=== PATIENT | female | born 1935 | race Caucasian/White ===

== ENCOUNTER 2020-06-15 10:05 | Outpatient (CLI) | payer MEDICARE, SELFPAY ==
--- NOTE | ~2020-06-15 | MMUS_ITS ---
EXAMINATION: US GUIDED NEEDLE BIOPSY WITH VACUUM ASSISTANCE DATE: 06/15/2020 11:08 CDT INDICATION: Left breast mass seen on recent examination. Ultrasound-guided core biopsy is requested to evaluate for malignancy. TECHNIQUE AND FINDINGS: The risks and potential benefits of the procedure were discussed with the patient, and written inform ed consent was obtained. After sterile preparation of the left breast, 1% lidocaine was utilized for local anesthesia. 1% lidocaine with epinephrine was used for deep anesthesia. The mass of interest is located in the upper inner quadrant. A 10G vacuum-assisted biopsy gun needle was advanced through to the outer edge of the region of interest from a superior medial approach util izing sonographic guidance. A total of three tissue core samples were obtained through the lesion. An Inrad tissue marker clip was then placed at the biopsy site. Hemostasis was achieved. The patient tolerated procedure well and there was no evidence of immediate complication. The patien t was given verbal instructions partly is from the department. Left breast mammograms to document ti ssue marker clip placement. The tissue samples were submitted to surgical pathology for histologic an alysis.] IMPRESSION: 1. Successful ultrasound-guided vacuum-assisted biopsy of left breast mass in the upper inner quadra nt with tissue marker placement. Please refer to pathology report for histologic analysis. Reviewed, dictated and finalized at location A. IMPRESSION: 1. Successful ultrasound-guided vacuum-assisted biopsy of left breast mass in the upper inner quadrant with tissue marker placement. Please refer to patholog y report for histologic analysis.
== END 2020-06-15 10:06 | disposition home or self-care (01) ==
PROVIDERS: PCP Surgery; Visit Provider Surgery
DX: D05.12 Intraductal carcinoma in situ of left breast (principal)
CPT/HCPCS: 19083; 88305; 88342

== ENCOUNTER 2020-07-13 13:31 | Outpatient (CLI) | payer MEDICARE, SELFPAY ==
--- NOTE | ~2020-07-13 | XR_ITS ---
EXAMINATION: XR chest 2V DATE: 07/13/2020 15:03 INDICATION: History of hypertension TECHNIQUE: PA and lateral views of the chest are obtained. COMPARISON: 12/08/2016 FINDINGS: The lungs are free of acute opacities. There is no pleural effusion or pneumothorax. The ca rdiomediastinal silhouette is normal. There is moderate thoracic spondylosis. Surgical clips are note d in the right axilla. IMPRESSION: 1. No acute cardiopulmonary abnormality. Reviewed, dictated and finalized at location A.
--- NOTE | 2020-07-13 14:33 | ECG_ITS ---
Measurements Intervals [place] Rate: 56 P: 87 CT: 223 QRS: 58 QRSD: 106 T: 79 QT: 450 QTc: 435 Interpretive Statements SINUS BRADYCARDIA WITH FIRST DEGREE AV BLOCK VOLTAGE CRITERIA FOR LVH ST ELEVATION IN ANTEROLATERAL LEADS- PROBABLY EARLY REPOLARIZATION BASELINE ARTIFACT- I, III, AVR, AVL, AVF, V1-V6 ABNORMAL ECG Electronically Signed On 07-13-2020 15:06:32 CDT by Woodrow Hastings D.O.
[2020-07-13 15:13] LABS: Hemoglobin 11.6 g/dL (12.0-15.0); Mean Corpuscular HGB Conc 32.2 g/dl (32-36); Mean Corpuscular Hemoglobin 30.4 pg (26-34); Mean Corpuscular Volume 94.5 fl (80-100); Mean Platelet Volume 10.2 fl (7.4-10.4); Platelet Count Result 226 k/mm3 (150-375); Red Blood Count 3.81 M/mm3 (4.2-5.4); Red Cell Distribution Width 14.2 % (11.5-14.5); White Blood Count 6.5 K/mm3 (4.5-10.0)
[2020-07-13 15:24] LABS: Anion Gap 10 mmol/L (8-16); Blood Urea Nitrogen 44 mg/dL (7-17); Calcium 9.2 mg/dL (8.4-10.2); Carbon Dioxide 27 mmol/L (22-30); Chloride 104 mmol/L (98-107); Estimated Glomerular Filt Rate 21; Glucose 108 mg/dL (65-105); Potassium 5.2 mmol/L (3.4-5.0); Sodium 141 mmol/L (137-145)
== END 2020-07-13 13:32 | disposition home or self-care (01) ==
LOC: ANHSURGERY 13:36
PROVIDERS: PCP Internal Medicine; Visit Provider Surgery
DX: Z01.818 Encounter for other preprocedural examination (principal); C50.919 Malignant neoplasm of unspecified site of unspecified female breast; R94.31 Abnormal electrocardiogram [ECG] [EKG]
CPT/HCPCS: 36415; 71046; 80048; 85027; 86850; 86900; 86901; 93005

== ENCOUNTER 2020-07-19 01:17 | Outpatient (CLI) | payer MEDICARE, SELFPAY ==
[2020-07-19 18:16] LABS: SARS-CoV-2 RNA PCR Negative
== END 2020-07-19 01:18 | disposition home or self-care (01) ==
LOC: ANHCOVIDDT 01:17
PROVIDERS: Visit Provider Surgery
DX: Z01.812 Encounter for preprocedural laboratory examination (principal); Z20.828 Contact with and (suspected) exposure to other viral communicable diseases
CPT/HCPCS: 87635; C9803; U0003

== ENCOUNTER 2020-07-21 01:55 | Day surgery (SDC) | payer MEDICARE, SELFPAY ==
[2020-07-13 14:06] VITALS: BP 180/80; PULSE 62; RESP 20; TEMP 36.7; O2SAT 97; BMI 39.2
[2020-07-21] VITALS (8 sets, daily range): BP systolic 102–185; BP diastolic 42–74; PULSE 58–64; RESP 14–20; TEMP 36.1–36.3; O2SAT 92–100
--- NOTE | ~2020-07-21 | NM_ITS ---
EXAMINATION: NM sentinel node inject only DATE: 07/21/2020 10:22 INDICATION: Left breast cancer TECHNIQUE: 1.049 mCi Tc-99m filtered sulfur colloid was injected in four aliquots in the anterior molina ast near the areola. No images were obtained. IMPRESSION: 1. Left breast sentinel lymph node radiopharmaceutical injection. Reviewed, dictated and finalized at location A.
--- NOTE | 2020-07-21 07:39 | WPDANESEPPF ---
Anes - Initial Pre Proc Eval Procedure: Operation Date: 07/21/20 09:00 Proposed Procedures p Left Axillary [place] Lymph Node Biopsy, Left Mastectomy - Jatin Henriquez MD Date/Time: 07/21/20 07:39 Surgeon: Jatin Henriquez MD Pre Op Diagnosis: Left Breast Ca Patient Data Age: 84 Gender: F Height: 5 ft 2 in Weight: 97.4 kg Last Vital Signs Temp 36.7 C 07/13/20 14:06 Pulse 62 07/13/20 14:06 Resp 20 07/13/20 14:06 BP 180/80 H 07/13/20 14:06 Pulse Ox 97 07/13/20 14:06 Allergies Allergy/AdvReac Type Severity Reaction Status Date / Time [id number]-[id number]-Gfk Reductase Allergy Severe MUSCLE PAIN Verified 07/21/20 07:30 Inhibitor adhesive Allergy Unknown blisters Verified 07/21/20 07:30 Penicillins Allergy Unknown Rash Verified 07/21/20 07:30 simvastatin Allergy Unknown rash Verified 07/21/20 07:30 Sulfa (Sulfonamide Allergy Unknown Rash Verified 07/21/20 07:30 Antibiotics) morphine AdvReac Intermediate BECAME Verified 07/21/20 07:30 VERY CONFUSUED STERI STRIPS AdvReac Severe BLISTERS Uncoded 07/21/20 07:30 Home Medications Medication Instructions Recorded Confirmed Type allopurinol 100 mg tablet 200 mg PO DAILY 06/03/20 07/21/20 History alprazolam 0.25 mg tablet 0.25 mg PO HS PRN 06/03/20 07/21/20 History aspirin 81 mg tablet,delayed 81 mg PO DAILY 06/03/20 07/13/20 History release atenolol 50 mg tablet 50 mg PO DAILY 06/03/20 07/21/20 History chlorthalidone 25 mg tablet 25 mg PO EVERY OTHER DAY 06/03/20 07/21/20 History clonidine HCl 0.2 mg tablet 0.2 mg PO BID tablet 06/03/20 07/21/20 History famotidine 20 mg tablet 40 mg PO DAILY 06/03/20 07/21/20 History levothyroxine 13 mcg capsule 0.75 mcg PO DAILY cap 06/03/20 07/21/20 History losartan 100 mg tablet 100 mg PO DAILY 06/03/20 07/21/20 History omeprazole 40 mg capsule,delayed 40 mg PO DAILY 06/03/20 07/21/20 History release pitavastatin calcium 2 mg tablet 2 mg PO DAILY 06/03/20 07/21/20 History cholecalciferol (vitamin D3) 125 mcg PO DAILY 07/13/20 07/21/20 History evolocumab [Repatha Syringe] 140 mg SUBCUT [id number] 07/13/20 07/21/20 History ropinirole 3 mg PO HS 07/13/20 07/21/20 History Patient hx anesthesia problems: none Family hx anesthesia problems: none PMFSH Past Medical History Medical History Asthma Breast cancer Heart disease High cholesterol HTN (hypertension) Hx SBO Personal history of breast cancer Thyroid disease Surgical History Surgical History H/O breast biopsy 06/15/20 H/O heart artery stent x3 H/O right mastectomy History of knee replacement S/P hip replacement Family History Family History Father Heart disease Sibling Heart disease Other Family history of cardiovascular disease Social History Social History Smoking status: Former smoker Second hand tobacco smoke exposure: No Additional smoking assessment comments: 2PK/DAY/15YRS QUIT 1985 Alcohol intake: current Drinks per week: 7 Alcohol use details: 7 Substance use: unknown Living arrangements: alone Gender identity (if verbalized by the patient): Female Spiritual care concerns: No Anes - Eval Final PreProcedure Day of Procedure 07/21/20 07:39 Patient weight: morbidly obese Heart: regular rate and rhythm Lungs: clear to auscultation Airway: Mallampati scale class II and other (upper partial) Neurological: alert and oriented Last oral intake: >/= 8 hours ASA classification: IV Emergent: no Anesthetic plan: proceed Anesthesia type and monitoring: general LMA and standard monitoring Informed Consent: The patient's anesthetic plan and its attendant risks and benefits were discussed with the patient/family/POA. Questions were solicited and answers provided to the satisfaction of
[2020-07-21] MEDS: LACTATED RINGERS 1,000 ML 30 ML IV CONT ×2 (07:44→12:05)
--- NOTE | 2020-07-21 09:14 | WPDHPUPDATE1 ---
History and Physical Update Update Date/Time: 07/21/20 09:14 History and Physical has been reviewed, including an updated exam of the patient. There are NO changes in the patient's condition. Risks, benefits, and alternatives have been discussed and questions answered. Patient agrees to proceed with procedure.
--- NOTE | 2020-07-21 09:39 | SUR.PREOP ---
Up to bathroom.
[2020-07-21] MEDS: CLINDAMYCIN 900 MG/NS 50 ML 900 MG/50 ML PIGGYBACK 50 MG IVPB (09:48)
--- NOTE | 2020-07-21 09:59 | PM.PROC ---
Procedure Note - Detailed Date of procedure: 07/21/20 Pre-op diagnosis: Left Breast Ca Invasive ductal carcinoma left breast Post-op diagnosis: same Procedure performed: Left axillary sentinel lymph node biopsy, left mastectomy Description of procedure: The patient was taken to surgery and induced into general anesthesia. The left chest, breast, and left arm with axilla were prepped and draped such that the arm was sterile and mobile in the surgical field. The patient had been given radioisotope injection prior to surgery in the radiology department. I infiltrated Lymphazurin dye under the left nipple. General breast massage was carried out so that this would have a chance to migrate to the left axillary sentinel lymph nodes. I alfred the mastectomy incision on the left breast. This was a Raghav type oblique ellipse incision. I then used the navigator and found an area of high isotope emission in the left axilla. I marked this area on the skin for reference. I went ahead and made the incision for both the superior and inferior flaps. Cautery was used for hemostasis. We then proceeded to develop the superior flap. Face-lift retractors were used to elevate the superior flap. I dissected the superior flap using the cautery. We dissected cephalad up to just below the left clavicle. Medially our dissection was to the lateral border of the sternum. Laterally the dissection was to the latissimus Dorsi muscle anterior surface. I left some of the tissue in the area of the axilla where the isotope emission had been located. Cautery was used for hemostasis. Once the superior flap was completed, I changed positions above the armboard with the 1st assistant construction superintendent. The inferior flap was then raised in similar fashion. The medial border and lateral borders were the same. The inferior border was the insertion of the rectus muscle. Once the inferior flap was created, we changed our positions again. I went ahead with dissection in the axilla using the navigator and found sentinel lymph node 1. This lymph node had high isotope emission and was stained with the Lymphazurin as well. I dissected it free from the surrounding axillary tissue using cautery as well as clips. The specimen was sent as sentinel lymph node 1. I checked for other sentinel lymph nodes and was not able to find any at that time. I then elevated the left breast and removed it from the pectoralis major muscle taking the pectoralis fascia with the breast specimen. Cautery was used for hemostasis and for much of the dissection. When we got to the area of the axilla I reach checked again with the navigator and found a 2nd sentinel lymph node. It also had significant Lymphazurin staining as well as high isotope emission. I dissected it free in similar fashion. This was sent as sentinel lymph node 2. I checked again for any additional sentinel lymph nodes. None were found. I went ahead and divided the remaining attachments of the breast to the chest wall. Once the breast specimen had been completely removed, it was passed off fresh to pathology. I checked again for additional sentinel lymph nodes using the navigator and inspection. No additional sentinel nodes were found. I then carefully inspected and made hemostatic the entire left mastectomy wound. All looked quite good. A 19 [place] Sandoval drain was placed under the superior flap and brought out below the incision in the left axillary line. It was sutured to the skin with 2 0 silk. I then closed the superior and inferior flaps with interrupted subcuticular suture of 3 0 Vicryl. The skin was then further closed with running 4 0 Monocryl skin suture. The drain was placed to bulb suction and this suction held well. The flaps appeared to be quite adherent to the chest wall. The wound was dressed with Exofin surgical adhesive. The patient was awakened and taken to recovery in good condition. Sponge and needle counts were correct x2. Surgeon: Jatin Henriquez
[2020-07-21] MEDS: ISOSULFAN BLUE 1% INJ 5 ML VIAL 4 ML SUB-Q (10:17)
--- NOTE | 2020-07-21 10:57 | SUR.OPER ---
specimen sent with RADHA Puente and received in pathology by Keyanna
--- NOTE | 2020-07-21 11:02 | SUR.OPER ---
specimen # 2 sent with RADHA Puente and received in pathology by Keyanna
--- NOTE | 2020-07-21 13:46 | ADMGEN ---
This patient, Nellie Jorgensen, was admitted to 3 [facility] Surg Room 307-01. Patient/family oriented to hospital policies and general routines including ID bracelet, bed and alarms, visiting hours, pain management, procedures, bathroom and other care routines, personal items, smoking policy, room service/diet, and visiting hours. Valuables list has been completed. Information on how to activate the Rapid Response Team has been discussed. Patient/Family are encouraged to report perceived risks to care and to ask questions if they do not understand what they are told or what they should do. PT arrived to floor @0600
[2020-07-21] MEDS: allopurinoL 100 MG TABLET 200 MG PO (15:17)
[2020-07-21] MEDS: LOSARTAN POTASSIUM 100 MG TABLET PO (15:18)
[2020-07-21] MEDS: ASPIRIN 81 MG ENTERIC TABLET PO (15:18)
[2020-07-21] MEDS: CHOLECALCIFEROL 1,000 UNITS TABLET 1000 UNITS PO (15:18)
[2020-07-21] MEDS: LACTATED RINGERS 1,000 ML 100 ML IV CONT (15:24)
[2020-07-21] MEDS: HYDROcodone/acetaminophen (*CRX) 10-325 MG TABLET 1 TAB PO ×2 (15:30→23:49)
[2020-07-21] MEDS: cloNIDine HCL 0.2 MG TABLET PO (17:35)
[2020-07-21] MEDS: rOPINIRole HCL 1 MG TABLET 3 MG PO (20:21)
[2020-07-21] MEDS: ENOXAPARIN 30 MG/0.3 ML SYRINGE SUB-Q (22:36)
[2020-07-22 00:50] VITALS: BP 155/54; PULSE 60; RESP 12; TEMP 36.8; O2SAT 95
[2020-07-22 05:23] VITALS: BP 170/61; PULSE 58; RESP 18; TEMP 36.2; O2SAT 94
[2020-07-22] MEDS: LEVOTHYROXINE SODIUM 75 MCG TABLET PO (05:34)
[2020-07-22 05:39] VITALS: PULSE 56
[2020-07-22] MEDS: atenoloL 50 MG TABLET PO (05:39)
[2020-07-22] MEDS: ASPIRIN 81 MG ENTERIC TABLET PO ×2 (05:39→05:42)
[2020-07-22] MEDS: allopurinoL 100 MG TABLET 200 MG PO ×2 (05:39→05:42)
[2020-07-22] MEDS: CHOLECALCIFEROL 1,000 UNITS TABLET 1000 UNITS PO (05:43)
[2020-07-22] MEDS: CHLORTHALIDONE 25 MG TABLET PO (05:43)
[2020-07-22] MEDS: FAMOTIDINE 20 MG TABLET 40 MG PO (05:44)
[2020-07-22] MEDS: cloNIDine HCL 0.2 MG TABLET PO (05:49)
[2020-07-22] MEDS: LOSARTAN POTASSIUM 100 MG TABLET PO (05:49)
[2020-07-22 06:25] LABS: Anion Gap 8 mmol/L (8-16); Blood Urea Nitrogen 37 mg/dL (7-17); Calcium 8.5 mg/dL (8.4-10.2); Carbon Dioxide 27 mmol/L (22-30); Chloride 107 mmol/L (98-107); Estimated CRCL calculation 26 ml/min; Estimated Glomerular Filt Rate 31; Glucose 110 mg/dL (65-105); Potassium 4.8 mmol/L (3.4-5.0); Sodium 142 mmol/L (137-145)
[2020-07-22 06:35] LABS: Hematocrit 33.4 % (37.0-47.0); Hemoglobin 10.8 g/dL (12.0-15.0); Mean Corpuscular HGB Conc 32.3 g/dl (32-36); Mean Corpuscular Hemoglobin 30.7 pg (26-34); Mean Corpuscular Volume 94.9 fl (80-100); Mean Platelet Volume 10.7 fl (7.4-10.4); Platelet Count Result 219 k/mm3 (150-375); Red Blood Count 3.52 M/mm3 (4.2-5.4)
[2020-07-22] MEDS: ACETAMINOPHEN 500 MG TABLET PO (07:19)
--- NOTE | 2020-07-22 07:34 | PM.DS ---
DS: Admitting Diagnosis Admitting Diagnosis Admitting Diagnosis: Left Breast Ca DS: Discharge Diagnosis Discharge Diagnosis (1) Invasive ductal carcinoma of left breast: Code(s): C50.912 - Malignant neoplasm of unspecified site of left female breast Status: Chronic (2) Presence of stent in coronary artery in patient with coronary artery disease: Code(s): I25.10 - Atherosclerotic heart disease of [place] coronary artery without angina pectoris; Z95.5 - Presence of coronary angioplasty implant and graft Status: Chronic (3) HTN (hypertension): Code(s): I10 - Essential (primary) hypertension Status: Chronic (4) Asthma: Code(s): J45.909 - Unspecified asthma, uncomplicated Status: Chronic (5) Gout: Code(s): M10.9 - Gout, unspecified Status: Chronic DS: Summary Time Spent with Patient Time attestation: Total time spent providing and/or coordinating discharge services: Patient underwent left axillary sentinel lymph node biopsy on 07/21/2020. At the same operation she underwent left mastectomy. She was observed overnight. There was some bruising of the superior flap but no hematoma. She was able to be discharged the day after surgery in stable condition. Exam Chest: Chest palpation & inspection: abnormal inspection of the chest ( Left mastectomy with bruising superior flap) other ( both flaps were viable, serosanguineous drainage in SHWETA); no swelling and no erythema Breast/axilla palpation: other ( status post bilateral mastectomy. No hematoma left mastectomy site.) DS: Data Data Completed and Pending Pending studies at discharge: Pending at discharge 07/21/20 10:44 Surgical [PTH] Routine Surgical [PTH] Routine Surgical [PTH] Routine Labs on day of discharge: Labs from last 24 hours 07/22/20 07/22/20 05:47 05:47 WBC 8.0 RBC 3.52 L Hgb 10.8 L Hct 33.4 L MCV 94.9 MCH 30.7 MCHC 32.3 RDW 14.0 Plt Count 219 MPV 10.7 H Sodium 142 Potassium 4.8 Chloride 107 Carbon Dioxide 27 Anion Gap 8 BUN 37 H Creatinine 1.60 H Estim Creat Clear Calc 26 Estimated GFR 31 L Glucose 110 H Calcium 8.5 Discharge Plan Discharge Patient Disposition: Home, Self-Care Discharge Instructions: 1.)Keep wound clean and dry. Okay to remove dressing to SHWETA drain site and get in the shower. Okay to wash mastectomy site with soap and water. Empty SHWETA drain at least daily and record output in mL. Bring a record of daily SHWETA drain outputs on a 24 hour basis to office visit next week. 2.)No vigorous activity or carrying with affected arm. May use arm to comb hair, eat, write, etc. Keep left elbow close to left chest wall. 3.)Do not apply creams or ointments unless directed to do so by your surgeon. 4.)Ambulate (walk) for exercise at least 3 times per day. 5.)Contact your surgeon?s office if you have excessive and persistent pain, swelling, bleeding, or drainage through the dressing, redness or red streaks around the wound, heat or warmth at the site of the incision, or fever of more than 101 degrees. 6.)Resume all home medications. Patient to be given pain medication prescription prior to discharge if needed. 7.)Please allow 5 business days for biopsy results. Dr. Henriquez/Dr. Sloan?s office will call with results. 8.)Nutrition: Start out by drinking fluids and increase your diet as tolerated. If you experience nausea, try dry toast and crackers and 7-UP. If nausea or vomiting persists, contact your surgeon?s office. 9.)No alcohol while taking your narcotic pain medication. No driving for 24 hours or if you are taking your narcotic pain medication. Patient Instructions: Pain Management in Older Adults (DC) Follow-up/Referrals: Jatin Henriquez MD [Physician] - Keep Reg. Scheduled Appt. Discharge Medications: New hydrocodone-acetaminophen 5-325 mg tablet 1 - 2 tablet PO Q6H PRN (Reason: pain) Qty: 20
== END 2020-07-22 10:15 | disposition home or self-care (01) ==
LOC: ANHSURGERY 06:45 → ANH3MEDSUR 13:43
PROVIDERS: PCP Internal Medicine; Visit Provider Surgery
PROC: (CPT 19303; principal; 2020-07-21 09:00)
DX: C50.912 Malignant neoplasm of unspecified site of left female breast (principal); I11.9 Hypertensive heart disease without heart failure; E78.00 Pure hypercholesterolemia, unspecified; E07.9 Disorder of thyroid, unspecified; J45.909 Unspecified asthma, uncomplicated; I25.10 Atherosclerotic heart disease of native coronary artery without angina pectoris; M10.9 Gout, unspecified; Z79.82 Long term (current) use of aspirin; Z95.5 Presence of coronary angioplasty implant and graft; Z87.891 Personal history of nicotine dependence; E66.01 Morbid (severe) obesity due to excess calories; Z68.39 Body mass index [BMI] 39.0-39.9, adult
CPT/HCPCS: 19303; 38525; 36415; 38792; 80048; 85027; 88307; 88342; A4565; A9270; A9520; C1713; J1100; J1650; J2405; J2704; J3010; J7120

== ENCOUNTER 2020-07-29 09:51 | Day surgery (SDC) | payer MEDICARE, SELFPAY ==
[2020-07-29 10:47] VITALS: BP 133/56; PULSE 64; RESP 20; TEMP 36.1; O2SAT 100
--- NOTE | 2020-07-29 11:02 | WPDANESEPPF ---
Anes - Initial Pre Proc Eval Procedure: Operation Date: 07/29/20 12:30 Proposed Procedures p Evacuation Seroma Left Mastectomy Site with Drain Placement - Jatin Henriquez MD Date/Time: 07/29/20 11:02 Surgeon: Jatin Henriquez MD Pre Op Diagnosis: left breast seroma s/p mastectomy Patient Data Age: 84 Gender: F Height: Weight: 95.8 kg Last Vital Signs Temp 36.1 C L 07/29/20 10:47 Pulse 64 07/29/20 10:47 Resp 20 07/29/20 10:47 BP 133/56 L 07/29/20 10:47 Pulse Ox 100 07/29/20 10:47 Allergies Allergy/AdvReac Type Severity Reaction Status Date / Time Rwmyxkm-Aju-Wlc Reductase Allergy Severe MUSCLE PAIN Verified 07/29/20 10:54 Inhibitor adhesive Allergy Unknown blisters Verified 07/29/20 10:54 Penicillins Allergy Unknown Rash Verified 07/29/20 10:54 simvastatin Allergy Unknown rash Verified 07/29/20 10:54 Sulfa (Sulfonamide Allergy Unknown Rash Verified 07/29/20 10:54 Antibiotics) morphine AdvReac Intermediate BECAME Verified 07/29/20 10:54 VERY CONFUSUED STERI STRIPS AdvReac Severe BLISTERS Uncoded 07/29/20 10:54 Home Medications Medication Instructions Recorded Confirmed Type allopurinol 100 mg tablet 200 mg PO DAILY 06/03/20 07/29/20 History alprazolam 0.25 mg tablet 0.25 mg PO HS PRN 06/03/20 07/29/20 History aspirin 81 mg tablet,delayed 81 mg PO DAILY 06/03/20 07/29/20 History release atenolol 50 mg tablet 50 mg PO DAILY 06/03/20 07/29/20 History chlorthalidone 25 mg tablet 25 mg PO EVERY OTHER DAY 06/03/20 07/29/20 History clonidine HCl 0.2 mg tablet 0.2 mg PO BID tablet 06/03/20 07/29/20 History famotidine 20 mg tablet 40 mg PO DAILY 06/03/20 07/29/20 History levothyroxine 13 mcg capsule 0.75 mcg PO DAILY cap 06/03/20 07/29/20 History losartan 100 mg tablet 100 mg PO DAILY 06/03/20 07/29/20 History omeprazole 40 mg capsule,delayed 40 mg PO DAILY 06/03/20 07/29/20 History release pitavastatin calcium 2 mg tablet 2 mg PO DAILY 06/03/20 07/29/20 History Repatha Syringe 140 mg SUBCUT [id number] 07/13/20 07/29/20 History cholecalciferol (vitamin D3) 125 mcg PO DAILY 07/13/20 07/29/20 History ropinirole 3 mg PO HS 07/13/20 07/29/20 History hydrocodone-acetaminophen 1 - 2 tablet PO Q6H PRN #20 tablet 07/22/20 07/29/20 Rx acetaminophen [Acetaminophen Extra 500 mg PO Q6H PRN 07/29/20 07/29/20 History Strength] ECG: Date of Service: 07/13/20 Procedure(s): CA 12 lead EKG Accession Number(s): [id number] cc: ~ Measurements Intervals [place] Rate: 56 P: 87 [place]: 223 QRS: 58 QRSD: 106 T: 79 QT: 450 QTc: 435 Interpretive Statements SINUS BRADYCARDIA WITH FIRST DEGREE AV BLOCK VOLTAGE CRITERIA FOR LVH ST ELEVATION IN ANTEROLATERAL LEADS- PROBABLY EARLY REPOLARIZATION BASELINE ARTIFACT- I, III, AVR, AVL, AVF, V1-V6 ABNORMAL ECG Electronically Signed On 07-13-2020 15:06:32 CDT by Woodrow Hastings D.O. Dictated By: Woodrow Hastings DO 07/13/20 1500 Patient hx anesthesia problems: none Family hx anesthesia problems: none PMFSH Past Medical History Medical History (Updated 07/29/20 @ 11:07 by Ezequiel Yoon MD) Asthma Breast cancer CKD (chronic kidney disease) stage 3, GFR 30-59 ml/min Class 1 obesity with body mass index (BMI) of 33.0 to 33.9 in adult Heart disease High cholesterol HTN (hypertension) Hx SBO Invasive ductal carcinoma of left breast Personal history of breast cancer Thyroid disease Surgical History Surgical History (Updated 07/29/20 @ 08:37 by Elizabeth Munroe CMA) H/O breast biopsy 06/15/20 H/O heart artery stent x3 H/O left mastectomy 07/21/2020: left breast sentinel node bx with left mastectomy. H/O right mastectomy History of knee r
[2020-07-29] MEDS: LACTATED RINGERS 1,000 ML 30 ML IV CONT (11:10)
--- NOTE | 2020-07-29 12:06 | SUR.PREOP ---
Resting without needs or complaints.
--- NOTE | 2020-07-29 12:31 | WPDHPUPDATE1 ---
History and Physical Update Update Date/Time: 07/29/20 12:31 History and Physical has been reviewed, including an updated exam of the patient. There are NO changes in the patient's condition. Risks, benefits, and alternatives have been discussed and questions answered. Patient agrees to proceed with procedure.
[2020-07-29] MEDS: ceFAZolin 2 GM/D5W 50 ML 2 GM/50 ML BAG IVPB (12:57)
[2020-07-29] MEDS: BUPIVACAINE/EPINEPHRINE 0.5% 10 ML VIAL INFILTRATE (13:21)
[2020-07-29 13:33] VITALS: BP 90/45; PULSE 60; RESP 16; O2SAT 98
--- NOTE | 2020-07-29 13:46 | SUR.PREOP ---
1200: PT STATES NO CHANGE IN HEALTH SINCE PREOP INTERVIEW CONDUCTED PRIOR TO LT MASTECTOMY EXCEPT PT IS S/P LT MASTECTOMY. NO CHANGES IN MEDICATIONS EXCEPT ADDITION OF HYDROCODONE PRN PAIN.
[2020-07-29 14:00] VITALS: BP 122/64; PULSE 63
--- NOTE | 2020-07-29 14:18 | P.OP_ITS ---
Procedure Note - Detailed Date of procedure: 07/29/20 Pre-op diagnosis: seroma left mastectomy, skin flap necrosis Seroma left mastectomy wound, skin flap necrosis Post-op diagnosis: same Procedure performed: evacuation left mastectomy seroma, placement of SHWETA drain Description of procedure: the patient was taken to surgery and IV sedation was administered. The left mastectomy wound as well as the axilla upper arm and left chest were prepped and draped. An opening in the lateral aspect of the mastectomy incision had been created earlier today in the office. The suction was passed through this opening and residual seroma was evacuated. A 19 Sandoval drain was then passed through the mastectomy wound in the area of the inferior flap and brought out medially. The drain was sutured to the skin with 2 0 silk. The drain was to the appropriate length and positioned under the inferior flap and the lateral aspect of the wound where the bulk of the seroma resided. I then closed the lateral opening in the mastectomy wound with subcuticular interrupted 3 0 Vicryl suture. Local anesthetic was infiltrated at the area of the exit site of the drain and where the suture was placed. The drain was placed to bulb suction. It held suction well. The wound appeared dry. The wound was dressed with Xeroform gauze fluffs and Medipore tape. The patient was awakened and taken to recovery in good condition. Sponge and needle counts were correct x2. Anesthesia: MAC and local ( 0.5% Marcaine with epinephrine) Surgeon: Jatin Henriquez MD Cloth Washer Operator: Suraj Khan Estimated blood loss (mL): 2 Drains: Yes (SHWETA drain inferior flap) Packing: No Pathology: none sent Complications: None Condition: stable Disposition: same day Findings: seroma mostly lateral and associated with inferior flap; superior flap shows ischemic change with some necrosis
[2020-07-29 14:30] VITALS: BP 140/59; PULSE 58
--- NOTE | 2020-07-29 14:31 | SUR.PHASEII ---
Called Dr. Henriquez's office to switch pharmacies for antibiotics.
== END 2020-07-29 14:38 | disposition home or self-care (01) ==
PROVIDERS: Visit Provider Surgery
PROC: (CPT 10140; principal; 2020-07-29 12:30)
DX: L76.34 Postprocedural seroma of skin and subcutaneous tissue following other procedure (principal); Z90.12 Acquired absence of left breast and nipple; Z85.3 Personal history of malignant neoplasm of breast; I12.9 Hypertensive chronic kidney disease with stage 1 through stage 4 chronic kidney disease, or unspecified chronic kidney disease; N18.30 Chronic kidney disease, stage 3 unspecified; E78.00 Pure hypercholesterolemia, unspecified; E07.9 Disorder of thyroid, unspecified; J45.909 Unspecified asthma, uncomplicated; E66.9 Obesity, unspecified; Z87.891 Personal history of nicotine dependence
CPT/HCPCS: 10140; A9270; J0690; J2405; J2704; J3010; J7120

== ENCOUNTER 2020-11-16 10:33 | Outpatient (CLI) | payer MEDICARE, SELFPAY ==
--- NOTE | ~2020-11-16 | US_ITS ---
EXAMINATION: US carotid duplex BI DATE: 11/16/2020 11:26 INDICATION: Carotid occlusion/stenosis. TECHNIQUE: Grayscale, color Doppler, and pulsed Doppler images of the cervical carotid arteries were obtained. The degree of vessel stenosis is placed in one of the following categories: normal, <50%, 5 0-69%, >=70% but less than near-occlusion, near-occlusion, or total occlusion. Note that percent sten osis relative to normal distal artery lumen diameter is indirectly measured from velocity measurement s as described by Sharif, et al. Radiology 2003; 229:340-346. Notes: Normal: Peak systolic velocity <125 centimeters/sec and no plaque <50%. Peak systolic velocity <125 ( EDV <40; ICA/CCA PSV ratio <2.0; used these factors only a tandem lesions or low cardiac output or co ntralateral disease) 50-69 %: PSV 125-230 (EDV 40-100; ratio 2-4) >= 70% but less than near occlusion: PSV greater than 230 (EDV > 100; ratio> 4.0) Near Occlusion: PSV that is variable; markedly narrowed lumen Occlusion: Absent flow on color/spectral Doppler and no lumen on cardenas scale. COMPARISON: Ultrasound dated 10/13/2019. FINDINGS: RIGHT: The right common carotid artery (CCA) peak systolic velocity (PSV) is 77 cm/s. The right internal car otid artery (ICA) PSV is 231 cm/s. The right ICA end-diastolic velocity (EDV) is 41 cm/s. The right I CA/CCA PSV ratio is 3. The external carotid artery (ECA) PSV is 99 cm/s. There is antegrade flow in t he right vertebral artery. LEFT: The left CCA PSV is 93 cm/s. The left ICA PSV is 237 cm/s. The left ICA EDV is 66 cm/s. The left ICA/ CCA PSV ratio is 2.55. The ECA PSV is 121 cm/s. There is antegrade flow in the left vertebral artery . IMPRESSION: 1. Greater than or equal to 70% stenosis in the right internal carotid artery by sonographic criteria . 2. Greater than or equal to 70% stenosis in the left internal carotid artery by sonographic criteria. Reviewed, dictated and finalized at location B. O VISUAL AIDE IMPRESSION: 1. Greater than or equal to 70% stenosis in the right internal carotid artery b y sonographic criteria. 2. Greater than or equal to 70% stenosis in the left internal carotid artery by sonographic criteria.
== END 2020-11-16 10:34 | disposition home or self-care (01) ==
PROVIDERS: Visit Provider Internal Medicine Cardiovascular Disease
DX: I65.23 Occlusion and stenosis of bilateral carotid arteries (principal)
CPT/HCPCS: 93880

== ENCOUNTER → 2021-03-03 12:10 | Outpatient (CLI) | payer MEDICARE, SELFPAY ==
--- NOTE | ~2021-03-03 | DEXA_ITS ---
Bone Density Report Name: Nellie Jorgensen Age: 85 Sex: Female Ethnicity: White Date of : 1935 Indication: postmenopausal; screening for osteoporosis; parental hip fracture; height loss; prior fracture; cancer; hysterectomy; Referring Provider: Salomón Teran Study: Bone densitometry was performed. Exam Date: March 03, 2021 Accession number: [id number] Bone Density: Region BMD T-score Z-score Classification AP Spine (L1-L4) 1.148 0.9 3.8 Normal Femoral Neck (Left) 0.657 -1.7 0.8 Osteopenia Total Hip (Left) 0.800 -1.2 1.1 Osteopenia World Health Organization criteria for BMD impression classify patients as: Normal (T-score at or above -1.0), Osteopenia (T-score between -1.0 and -2.5), or Osteoporosis (T-score at or below -2.5). 10-year Fracture Risk(1): Major Osteoporotic Fracture 33% Hip Fracture 19% Reported Risk Factors: [place] (), Neck BMD=0.657, BMI=34.5, previous fracture, parental fracture (1) FRAX(R) Version 3.08. Fracture probability calculated for an untreated patient. Fracture probability may be lower if the patient has received treatment. Clinical Information Provided by Patient: Has had a low trauma fracture Parent has had a hip fracture Has used the following medications: Vitamin D, Calcium, Anastrozole, Levothyroxine Has the following medical conditions: Cancer, Hysterectomy Patient maximum height was 67.0 Menopause Age: 50 No regular weight bearing exercise Drinks caffeinated beverages Onset of menses at age 12 Number of children 1 Impression: The patient has low bone mass, based on the Left Femoral Neck T-score. The patient has an estimated ten-year risk of hip fracture of 19% and an estimated ten-year risk of major fracture of 33%, based on the WHO FRAX algorithm. The patient has risk factors, including: parental hip fracture, previous fracture. Discussion: BONE DENSITY IS LOW AT ONE OR MORE SKELETAL SITES. THE PATIENT'S BMD AND CLINICAL RISK FACTORS CONTRIBUTE TO THIS PATIENT'S HIGH RISK OF FRACTURE. This patient's lowest T-score is low at one or more skeletal sites. It meets the World Health Organization's (WHO) criteria for ?low bone mass? (T-score between -1.0 and -2.5). The patient's 10-year risk of hip fracture and 10 year risk of a major osteoporotic fracture as calculated by FRAX exceeds the threshold where pharmacological therapy is recommended by the National Osteoporosis Foundation (NOF). However, all treatment decisions require clinical judgment and consideration of individual patient factors, including patient preferences, comorbidities, previous drug use, risk factors not captured in the FRAX model (e.g., frailty, falls, vitamin D deficiency, increased bone turnover, interval significant decline in bone density) and possible under or overestimation of fracture risk by FRAX. The patient shoul
== END ==
DX: Z78.0 Asymptomatic menopausal state (principal); Z85.3 Personal history of malignant neoplasm of breast; M85.852 Other specified disorders of bone density and structure, left thigh
CPT/HCPCS: 77080

== ENCOUNTER 2021-12-07 13:21 | Outpatient (CLI) | payer MEDICARE, SELFPAY ==
--- NOTE | ~2021-12-07 | US_ITS ---
EXAMINATION: US carotid duplex BI DATE: 12/07/2021 15:25 INDICATION: Bilateral carotid artery disease. TECHNIQUE: Grayscale, color Doppler, and pulsed Doppler images of the cervical carotid arteries were obtained. The degree of vessel stenosis is placed in one of the following categories: normal, <50%, 5 0-69%, >=70% but less than near-occlusion, near-occlusion, or total occlusion. Note that percent sten osis relative to normal distal artery lumen diameter is indirectly measured from velocity measurement s as described by Sharif, et al. Radiology 2003; 229:340-346. Notes: Normal: Peak systolic velocity <125 centimeters/sec and no plaque <50%. Peak systolic velocity <125 ( EDV <40; ICA/CCA PSV ratio <2.0; used these factors only a tandem lesions or low cardiac output or co ntralateral disease) 50-69 %: PSV 125-230 (EDV 40-100; ratio 2-4) >= 70% but less than near occlusion: PSV greater than 230 (EDV > 100; ratio> 4.0) Near Occlusion: PSV that is variable; markedly narrowed lumen Occlusion: Absent flow on color/spectral Doppler and no lumen on cardenas scale. COMPARISON: None. FINDINGS: RIGHT: The right common carotid artery (CCA) peak systolic velocity (PSV) is 37 cm/s. The right internal car otid artery (ICA) PSV is 462 cm/s. The right ICA end-diastolic velocity (EDV) is 164 cm/s. The right ICA/CCA PSV ratio is 9.3. The external carotid artery (ECA) PSV is 142 cm/s. There is antegrade flow in the right vertebral artery. LEFT: The left CCA PSV is 93 cm/s. The left ICA PSV is 526 cm/s. The left ICA EDV is 226 cm/s. The left ICA /CCA PSV ratio is 6.1. The ECA PSV is 114 cm/s. There is antegrade flow in the left vertebral artery . IMPRESSION: 1. Greater than or equal to 70% stenosis in the right internal carotid artery by sonographic criteria . 2. Greater than or equal to 70% stenosis in the left internal carotid artery by sonographic criteria. Reviewed, dictated and finalized at location A. MEAT PROCESSOR IMPRESSION: 1. Greater than or equal to 70% stenosis in the right internal carotid artery b y sonographic criteria. 2. Greater than or equal to 70% stenosis in the left internal carotid artery by sonographic criteria.
== END 2021-12-07 13:22 | disposition home or self-care (01) ==
LOC: ANHIMG 13:26
PROVIDERS: PCP Internal Medicine; Visit Provider Internal Medicine Cardiovascular Disease
DX: I77.9 Disorder of arteries and arterioles, unspecified (principal); I65.23 Occlusion and stenosis of bilateral carotid arteries
CPT/HCPCS: 93880

== ENCOUNTER 2021-12-09 12:15 | Outpatient (CLI) | payer MEDICARE, SELFPAY ==
--- NOTE | 2021-12-09 15:57 | WPDPFTINT ---
PFT Procedure Performed PFT Procedure Performed Plethysmography (Lung Vol) Diffusing Cap (DLCO) Flow Vol Loop Spirometry w/o Bronchodil PFT Interpretation This is a pulmonary function test with spirometry, plethysmography and diffusing capacity. The test was performed and results interpreted in accordance with the 2019 and 2005 ATS/ERS Task Force guidelines respectively using the Global Lung Function Initiative-2012 reference equations. Patient demonstrated good effort and cooperation. Reproducibility criteria were met. The quality of the spirometry maneuver was Grade A. Findings: Spirometry: The contour the expiratory flow tracing demonstrates a notched or oscillating pattern in all 3 of the performed maneuvers. In addition there is decreased maximal expiratory airflow at all lung volumes with a concave expiratory flow tracing. The contour the inspiratory flow tracing is normal. The FVC is 2.11 L, 81% predicted. The FEV1 is 1.20 L, 62% predicted. The FEV1:FVC ratio is 57%. Plethysmography: The total lung capacity is 4.88 L, 91% predicted. The functional residual capacity is 2.94 L, 94% predicted. The residual volume is 2.60 L, 100% predicted. Diffusing capacity: The diffusing capacity unadjusted for hemoglobin is 11.5, 59% predicted. The diffusing capacity adjusted for alveolar volume is 2.38, 60% predicted. Impression: The spirometry is normal without evidence of an obstructive abnormality. The lung volumes are normal. The diffusing capacity is normal. Impression: There is a moderate obstructive abnormality. The lung volumes are normal. The diffusing capacity unadjusted for hemoglobin is moderately decreased and remains moderately decreased when adjusted for alveolar volume. The contour the expiratory flow tracing demonstrates a notched or oscillating pattern in all 3 of the performed maneuvers and this has been described with tracheobronchomalacia. Clinical correlation is recommended. There are no prior studies for comparison
== END 2021-12-09 12:16 | disposition home or self-care (01) ==
LOC: ANHPFT 12:17
PROVIDERS: PCP Internal Medicine; Visit Provider Internal Medicine Cardiovascular Disease
DX: R06.00 Dyspnea, unspecified (principal); R94.2 Abnormal results of pulmonary function studies
CPT/HCPCS: 94375; 94726; 94729

== ENCOUNTER 2022-03-26 11:06 | Emergency (ER) | payer MEDICARE, SELFPAY ==
[2022-03-26 11:11] VITALS: BP 147/64; PULSE 60; RESP 16; TEMP 36.1; O2SAT 98
--- NOTE | 2022-03-26 11:12 | ED.SKABFB ---
HPI - Skin/Abscess/Foreign Bdy General Chief complaint: Skin/Abscess/Foreign Body Stated complaint: pain on left base of neck to shoulder Time Seen by Provider: 03/26/22 11:19 Source: patient and RN notes reviewed History of Present Illness HPI narrative: Patient is an 86-year-old female who presents the urgent care with complaints of shooting sharp pain from the back of the neck down to the posterior shoulder blade. Patient states that she believes she may have shingles. Patient has not suffered from shingles in the past. Denies any recent strenuous activity or trauma to the neck or shoulder. Patient states is been ongoing for the last 2 days and it hurts to even put a bra or shirt on. Patient had a shingles shot several years ago. States that she has been taking aspirin without much relief. Patient also tried cool compress. Denies any chest pain or shortness of breath. No other acute complaints. No acute distress noted. Patient aware of the plan of care. Some parts of this dictation were generated by voice recognition software and may contain typographical and/or grammatical inaccuracies. Related Data Home Medications Medication Instructions Recorded Confirmed allopurinol 100 mg tablet 200 mg PO DAILY 06/03/20 03/26/22 alprazolam 0.25 mg tablet 0.25 mg PO HS PRN Anxiety 06/03/20 03/26/22 aspirin 81 mg tablet,delayed 81 mg PO DAILY 06/03/20 03/26/22 release atenolol 50 mg tablet 50 mg PO DAILY 06/03/20 03/26/22 chlorthalidone 25 mg tablet 25 mg PO EVERY OTHER DAY 06/03/20 03/26/22 clonidine HCl 0.2 mg tablet 0.2 mg PO BID 06/03/20 03/26/22 famotidine 20 mg tablet 40 mg PO DAILY 06/03/20 03/26/22 levothyroxine 13 mcg capsule 0.75 mcg PO DAILY 06/03/20 03/26/22 losartan 100 mg tablet 100 mg PO DAILY 06/03/20 03/26/22 omeprazole 40 mg capsule,delayed 40 mg PO DAILY 06/03/20 03/26/22 release pitavastatin calcium 2 mg tablet 2 mg PO DAILY 06/03/20 03/26/22 cholecalciferol (vitamin D3) 125 125 mcg PO DAILY 07/13/20 03/26/22 mcg (5,000 unit) capsule evolocumab 140 mg/mL subcutaneous 140 mg subcut [id number] 07/13/20 03/26/22 syringe (Repatha Syringe) ropinirole 3 mg tablet 3 mg PO HS 07/13/20 03/26/22 acetaminophen 500 mg tablet 500 mg PO Q6H PRN Pain 07/29/20 03/26/22 (Acetaminophen Extra Strength) anastrozole 1 mg tablet 1 mg PO DAILY 03/26/22 03/26/22 Allergies Allergy/AdvReac Type Severity Reaction Status Date / Time Fwvdpcy-PDS-VvQ Reductase Allergy Severe MUSCLE PAIN Verified 03/26/22 11:15 Inhibitor [Tvqvmzi-Thl-Yai Reductase Inhibitor] adhesive Allergy Unknown blisters Verified 03/26/22 11:15 Penicillins Allergy Unknown Rash Verified 03/26/22 11:15 simvastatin Allergy Unknown rash Verified 03/26/22 11:15 Sulfa (Sulfonamide Allergy Unknown Rash Verified 03/26/22 11:15 Antibiotics) morphine AdvReac Intermediate BECAME Verified 03/26/22 11:15 VERY CONFUSUED STERI STRIPS AdvReac Severe BLISTERS Uncoded 03/26/22 11:15 Review of Systems Review of Systems: CONSTITUTIONAL: Denies fever, chills, or sweats. EYES: Denies visual changes, redness, or discharge. ENT: Denies rhinorrhea, congestion, sore throat, or otalgia. CARDIOVASCULAR: Denies chest pain, palpitations, or edema. RESPIRATORY: Denies cough or dyspnea. GASTROINTESTINAL: Denies abdominal pain, nausea, vomiting, or diarrhea. GENITOURINARY: Denies dysuria or hematuria. SKIN: Denies rash or itching. MUSCULOSKELETAL: Denies back pain, joint pain, or myalgia. NEUROLOGIC: Denies headache, numbness, or weakness. Reports of sharp shooting pain from the base of the left side of the skull to the posterior shoulder blade All other systems reviewed are negative, except as documented in HPI. [facility] Past Medical History Medical History (Updated 03/26/22 @ 11:27 by DO Fermin) Asthma Breast cancer CKD (chronic kidney disease) stage 3, GFR 30-59 ml/min Class 1 obesity with body mass index (BMI) of 33.0 to 33.9 in adult Hear
== END 2022-03-26 11:33 | disposition home or self-care (01) ==
PROVIDERS: Emergency Provider Nurse Practitioner Family; PCP Internal Medicine
DX: B02.9 Zoster without complications (principal); Z87.891 Personal history of nicotine dependence; J45.909 Unspecified asthma, uncomplicated; E78.00 Pure hypercholesterolemia, unspecified; I12.9 Hypertensive chronic kidney disease with stage 1 through stage 4 chronic kidney disease, or unspecified chronic kidney disease; N18.30 Chronic kidney disease, stage 3 unspecified; E07.9 Disorder of thyroid, unspecified; Z85.3 Personal history of malignant neoplasm of breast; Z90.13 Acquired absence of bilateral breasts and nipples; Z96.651 Presence of right artificial knee joint; Z96.649 Presence of unspecified artificial hip joint; E66.9 Obesity, unspecified; Z68.31 Body mass index [BMI] 31.0-31.9, adult; Z79.82 Long term (current) use of aspirin
CPT/HCPCS: 99213; G0463

== ENCOUNTER 2022-11-27 10:33 | Outpatient (CLI) | payer MEDICARE, SELFPAY ==
--- NOTE | ~2022-11-27 | US_ITS ---
EXAMINATION: US soft tissue head and neck DATE: 11/27/2022 11:12 INDICATION: Neck lump. TECHNIQUE: Multiple grayscale and Doppler ultrasound images of the head and neck were obtained. COMPARISON: None FINDINGS: Near the left mastoid process, there is a 1.1 x 0.5 x 1.4 cm subcutaneous mass that is hype rechoic to normal subcutaneous fat with similar architecture. IMPRESSION: 1. 1.4 cm subcutaneous mass in the patient's area of concern near the left mastoid process, which may be inflammation or a lipoma. Reviewed, dictated and finalized at location A. OGRAPHER IMPRESSION: 1. 1.4 cm subcutaneous mass in the patient's area of concern near the left mast oid process, which may be inflammation or a lipoma.
== END 2022-11-27 10:34 | disposition home or self-care (01) ==
LOC: ANHIMG 10:35
PROVIDERS: PCP Internal Medicine; Visit Provider Surgery
DX: R22.1 Localized swelling, mass and lump, neck (principal)
CPT/HCPCS: 76536

== ENCOUNTER 2023-11-15 10:59 | Emergency (ER) | payer MEDICARE, SELFPAY ==
[2023-11-15 11:10] VITALS: BP 95/64; PULSE 85; RESP 20; TEMP 35.8; O2SAT 100
--- NOTE | 2023-11-15 12:05 | ED.GENADULT ---
HPI - General Adult General Chief complaint: Neuro Symptoms/Deficit Stated complaint: Light Headed/Flashing Lights/Neck Pain Time Seen by Provider: 11/15/23 11:46 Source: patient and RN notes reviewed Mode of arrival: ambulatory Limitations: no limitations History of Present Illness HPI narrative: Patient presents today complaining of dizziness and lightheadedness that were present when she woke up this morning. She also had a few flashing lights in her eyes. These symptoms have almost fully resolved prior to exam. She was also complaining of swollen lymph nodes in her neck, but these have almost fully resolved prior to exam as well. Denies shortness of breath, chest pain, difficulty swallowing, palpitations, nausea vomiting, headache common numbness or tingling in the extremities. She has tried no medication for symptoms prior to arrival. Related Data Home Medications Medication Instructions Recorded Confirmed allopurinol 100 mg tablet 200 mg PO DAILY 06/03/20 12/06/22 alprazolam 0.25 mg tablet 0.25 mg PO HS PRN Anxiety 06/03/20 12/06/22 atenolol 50 mg tablet 50 mg PO DAILY 06/03/20 12/06/22 famotidine 20 mg tablet 40 mg PO DAILY 06/03/20 12/06/22 levothyroxine 13 mcg capsule 0.75 mcg PO DAILY 06/03/20 12/06/22 omeprazole 40 mg capsule,delayed 40 mg PO DAILY 06/03/20 12/06/22 release pitavastatin calcium 2 mg tablet 2 mg PO DAILY 06/03/20 12/06/22 cholecalciferol (vitamin D3) 125 125 mcg PO DAILY 07/13/20 12/06/22 mcg (5,000 unit) capsule evolocumab 140 mg/mL subcutaneous 140 mg subcut [id number] 07/13/20 12/06/22 syringe (Repatha Syringe) ropinirole 3 mg tablet 3 mg PO HS 07/13/20 12/06/22 acetaminophen 500 mg tablet 500 mg PO Q6H PRN Pain 07/29/20 12/06/22 (Acetaminophen Extra Strength) dapagliflozin propanediol 10 mg 10 mg PO DAILY 10/26/22 12/06/22 tablet (Farxiga) sacubitril 49 mg-valsartan 51 mg 1 tablet PO BID 10/26/22 12/06/22 tablet (Entresto) Allergies Allergy/AdvReac Type Severity Reaction Status Date / Time [id number]-ZEH-WzF Reductase Allergy Severe MUSCLE PAIN Verified 11/15/23 11:05 Inhibitor [Jaehdhr-Tyu-Uhd Reductase Inhibitor] adhesive Allergy Unknown blisters Verified 11/15/23 11:05 Penicillins Allergy Unknown Rash Verified 11/15/23 11:05 simvastatin Allergy Unknown rash Verified 11/15/23 11:05 Sulfa (Sulfonamide Allergy Unknown Rash Verified 11/15/23 11:05 Antibiotics) morphine AdvReac Intermediate BECAME Verified 11/15/23 11:05 VERY CONFUSUED STERI STRIPS AdvReac Severe BLISTERS Uncoded 11/15/23 11:05 Review of Systems Review of Systems: CONSTITUTIONAL: Denies body aches, fever, chills, or sweats. EYES: Denies visual changes, redness, or discharge.+ flashing lights-resolved ENT: Denies rhinorrhea, congestion, sore throat, or otalgia. CARDIOVASCULAR: Denies chest pain, palpitations, or edema. RESPIRATORY: Denies cough or dyspnea. GASTROINTESTINAL: Denies abdominal pain, nausea, vomiting, or diarrhea. GENITOURINARY: Denies dysuria or hematuria. SKIN: Denies rash, itching, or wounds. MUSCULOSKELETAL: Denies back pain, joint pain, or myalgia. NEUROLOGIC: Denies headache, numbness, tingling, or weakness.+ dizziness, lightheadedness-resolved PSYCH: Denies depression or anxiety. [facility] Past Medical History Medical History Asthma Breast cancer CKD (chronic kidney disease) stage 3, GFR 30-59 ml/min Class 1 obesity with body mass index (BMI) of 33.0 to 33.9 in adult Heart disease High cholesterol HTN (hypertension) Hx SBO Invasive ductal carcinoma of left breast Personal history of breast cancer Thyroid disease Surgical History Surgical History H/O breast biopsy 06/15/20 H/O heart artery stent x3 H/O left mastectomy 07/21/2020: left breast sentinel node bx with left mastectomy. H/O right mastectomy History of knee replacement
[2023-11-15 12:11] VITALS: BP 102/43
== END 2023-11-15 12:11 | disposition home or self-care (01) ==
PROVIDERS: Emergency Provider Nurse Practitioner; PCP Internal Medicine
DX: R42 Dizziness and giddiness (principal); I12.9 Hypertensive chronic kidney disease with stage 1 through stage 4 chronic kidney disease, or unspecified chronic kidney disease; N18.30 Chronic kidney disease, stage 3 unspecified; Z85.3 Personal history of malignant neoplasm of breast; Z87.891 Personal history of nicotine dependence
CPT/HCPCS: 99213; G0463